=== PATIENT | male | born 1975 | race Hispanic/Latino ===

== ENCOUNTER 2016-11-14 10:24 | Emergency (ER) | payer OTHER ==
[~2016-11-14] VITALS: Ht 175.3 cm; Wt 95.3 kg
--- NOTE | 2016-11-14 11:50 | ED MVC/FALL/TRAUMA COMPLAINT ---
History of Present Illness General Chief Complaint: Low Back Pain/Injury Stated Complaint: LOW BACK PAIN, LT LEG PAIN/SWELLING Source: patient, old records Exam Limitations: no limitations Vital Signs & Intake/Output Vital Signs & Intake/Output Vital Signs Date Time Temp Pulse Resp B/P Pulse O2 O2 Flow FiO2 Ox Delivery Rate 11/14 1256 96.8 76 18 116/65 97 Room Air 11/14 1042 98.1 94 16 143/76 97 Room Air Allergies Uncoded Allergies: PEARS (HIVES 11/14/16) Reconcile Medications Cyclobenzaprine HCl 5 MG TABLET 1 TAB PO TIDPRN pain Methylprednisolone. (Medrol) 4 MG TAB.DS.PK 1 DP PO AD radiculopathy 6 on day 1 then reduce by one tablet daily until gone Oxycodone HCl/Acetaminophen (Percocet 5-325 MG Tablet) 5 MG-325 MG TABLET 1 TAB PO BID pain Triage Note: PT STATES HIS LEFT LEG AND BACK HURT. PT REPORTS SWELLING TO HIS LLE Triage Nurses Notes Reviewed? yes Onset: Abrupt Duration: day(s): (4), constant, waxing and waning Timing: recent history Severity: mild, moderate Severity Numbers: 5 Injuries/Fall Location: back Method of Injury: fall Loss of Consciousness: no loss of consciousness Modifying Factors: Improves With: rest. Worsens With: movement, palpation. Associated Symptoms: denies HPI: 40-year-old male with no medical history presents to emergency room complaining of left lower back pain that is radiating down the posterior aspect of his left leg for the past 4 days after he states he slipped and fell in the rain.. There is no head strike he denies any neck or upper back pain there is no loss of consciousness. States since then he's been having aching pain to the left lower back that is radiating down his buttocks and down his left leg associated with tingling and what he states is swelling to his leg. He is been taking anti- inflammatories without improvement. Pain is worse with change in position better at rest. He denies any urinary bowel incontinence no cell anesthesia no abdominal pain nausea vomiting diarrhea. No history of back problems in the past. (GAGAN AMAYA,MARIALUISA) Past History Travel History Traveled to [place] past 21 day No Medical History Any Pertinent Medical History? none Surgical History Surgical History: none Psychosocial History What is your primary language German Tobacco Use: Current Daily Use Daily Tobacco Use Amount/Type: => 5 Cigarettes daily ETOH Use: occasional use Illicit Drug Use: marijuana Family History Hx Contributory? No (MARIALUISA BECKER) Review of Systems Review of Systems Constitutional: Reports: see HPI. All Other Systems: Reviewed and Negative Comments Review of systems: See HPI, All other systems negative. Constitutional, no chills no fever, no malaise HEENT: No visual changes no sore throat no congestion Cardiovascular: No chest pain , no palpitation Skin, no rashes, no change in skin Respiratory: No dyspnea no cough no sputum GI: No nausea no vomiting, no diarrhea : No dysuria Muscle skeletal: No joint pain, back pain, no neck pain, Neurologic: No numbness no headache Psych: No stress Heme/endocrine: No bruising no bleeding Immunology: No lymphadenopathy (MARIALUISA BECKER) Physical Exam Physical Exam General Appearance: well developed/nourished, no apparent distress, alert, awake Comments: Well-developed well-nourished person in no acute distress HEENT: Normal EENT exam; PERRL, EOMI, HEAD is atraumatic. moist mucous membranes. Neck: Supple, normal range of motion Back: Tender to palpation over the left paralumbar muscles there is no ecchymosis or signs of trauma no midline tenderness, no CVA tenderness. Full range of motion Cardiovascular: Regular rate and rhythms no murmurs rubs Respiratory: No respiratory distress. Patient speaking in full complete sentences. Breath sounds clear to auscultation bilaterally: NO W/R/R Abdomen: Soft, nontender nondistended, no appreciable organomegaly. Normal bowel sounds. No rebound/guarding,. Extremity: No edema, positive straight leg raise a left lower extremity full range of motion of extremities, normal and equal pulses bilaterally, 5 out of 5 strength noted to bilateral upper and lower extremities Neuro: Alert oriented x3, motor sensory normal, There were no obvious focal neurologic abnormalities. Skin: No appreciable rash on exposed skin, skin is warm and dry. Psych: Mood and affect is normal, memory and judgment is normal. Core Measures ACS in differential dx? No Severe Sepsis Present: No Septic Shock Present: No (MARIALUISA BECKER) Progress Differential Diagnosis: abd injury, C/T/L spine injury, ext injury, spinal cord injury Plan of Care: Orders Procedure Date/time Status XRY-LUMBOSACRAL SPINE AP & LAT 11/14 1158 Active Current Medications Sig/Alex Start time Last Medication Dose Stop Time Status Admin Cyclobenzaprine HCl 5 MG ONCE ONE 11/14 1200 UNVr (Flexeril 5MG Tab) 11/14 1201 Patient medicated with prednisone 60 Percocet and partial 1 I discussed with the patient his x-ray results E for supportive care prescription is for the above provided, advised follow-up with his primary care physician, patient is ambulatory with steady gait. Patient clinically looks well. Patient has no evidence of radiculopathy. No urinary bowel dysfunction. No numbness in the genital area. Strength intact. Gross sensation intact. Patient resting comfortably and in no apparent distress. Pain is worse with range of motion. Pain is reproducible IN back with no bruising or ecchymosis noted. . Patient is to follow-up with primary care doctor. May need MRI of the lower back at some point time. No concerns for cauda equina at this point time. I considered this diagnosis but patient does not have any symptoms consistent with cauda equina. Patient has no secondary causes of back pain. No cardiac, pulmonary, or abdominal complaints. No abdominal pain on exam. Cardiac pulmonary exam within normal limits. No rashes, afebrile, denies recent weight loss, dizziness, lightheadedness (GAGAN AMAYA,MARIALUISA) Diagnostic Imaging: Viewed by Me: Radiology Read. Discussed w/RAD: Radiology Read. Radiology Impression: PATIENT: KATLIN BIRD PRESENT AGE: 40 PATIENT ACCOUNT NO: [id number] : 75 LOCATION: [facility] ORDERING PHYSICIAN: MARIALUISA AMAYA SERVICE DATE: 11/14/16 EXAM TYPE: RAD - XRY- LUMBOSACRAL SPINE AP & LAT EXAMINATION: XR LUMBOSACRAL SPINE CLINICAL INFORMATION: Left-sided back pain after fall. COMPARISON: None. TECHNIQUE: Lumbar spine, AP and lateral views FINDINGS: There is normal segmentation of the lumbar spine. No evidence of spondylolysis or vertebral compression fracture. There is traction osteophyte formation at L3-L4 and L4-L5. At L5-S1, there is mild degenerative disc space narrowing, traction osteophyte formation, and approximately 0.2 cm retrolisthesis of L5 on S1. Otherwise, lumbar vertebral alignment is maintained. Sacrum and sacroiliac joints are unremarkable. IMPRESSION: 1. No acute findings within the lumbosacral spine. 2. Mild disc degenerative change of L5-S1 with minimal retrolisthesis of L5 on S1. 3. No evidence of sacral fracture. DICTATED BY: ALLYN MCPHERSON MD DATE/TIME DICTATED: 11/14/161234 COMPUTER SYSTEMS SUPPORT SPECIALIST:HANK DATE/TIME TRANSCRIBED:11/14/161234 CONFIDENTIAL, DO NOT COPY WITHOUT APPROPRIATE AUTHORIZATION. <Electronically signed in Other Vendor System> SIGNED BY: ALLYN MCPHERSON MD 11/14/16 1241 (MARIALUISA BECKER) Departure Departure Time of Disposition: 1222 Disposition: HOME OR SELF CARE Condition: Stable Clinical Impression Primary Impression: Low back strain Referrals: PATIENT HAS NO PRIMARY CARE DR (PCP/Family) Referred to [facility] as new patient No Additional Instructions: Rest, interchange ice and heat. Percocet for breakthrough pain, Flexeril as directed use caution as these medications may make you drowsy. No driving or drinking alcohol while taking. Medrol Dosepak as discussed, return with any concerns Departure Forms: Customer Survey General Discharge Information Prescriptions: Current Visit Scripts Methylprednisolone. (Medrol) 1 DP PO AD #1 DP 6 on day 1 then reduce by one tablet daily until gone Oxycodone HCl/Acetaminophen (Percocet 5-325 MG Tablet) 1 TAB PO BID #10 TAB Cyclobenzaprine HCl 1 TAB PO TIDPRN #10 TAB (MARIALUISA BECKER) PA/SILK WEAVER Co-Sign Statement Statement: ED Attending supervision documentation- [] I saw and evaluated the patient. I have also reviewed all the pertinent lab results and diagnostic results. I agree with the findings and the plan of care as documented in the PA's/SILK WEAVER's documentation. [X] I have reviewed the ED Record and agree with the PA's/SILK WEAVER's documentation. [] Additions or exceptions (if any) to the PAs/SILK WEAVER's note and plan are summarized below: [] (JASON QUAN,ZAHRA)
[2016-11-14] MEDS ORDERED: CYCLOBENZAPRINE5 M2 PO (12:23)
[2016-11-14] MEDS ORDERED: MEDROL4 M2 PO (12:23)
[2016-11-14] MEDS ORDERED: PERCOCET 5-3251 EACH PO (12:23)
--- NOTE | 2016-11-14 12:41 | RADIOLOGY REPORT ---
EXAMINATION: XR LUMBOSACRAL SPINE CLINICAL INFORMATION: Left-sided back pain after fall. COMPARISON: None. TECHNIQUE: Lumbar spine, AP and lateral views FINDINGS: There is normal segmentation of the lumbar spine. No evidence of spondylolysis or vertebral compression fracture. There is traction osteophyte formation at L3-L4 and L4-L5. At L5-S1, there is mild degenerative disc space narrowing, traction osteophyte formation, and approximately 0.2 cm retrolisthesis of L5 on S1. Otherwise, lumbar vertebral alignment is maintained. Sacrum and sacroiliac joints are unremarkable. IMPRESSION: 1. No acute findings within the lumbosacral spine. 2. Mild disc degenerative change of L5-S1 with minimal retrolisthesis of L5 on S1. 3. No evidence of sacral fracture.
[2016-11-14 12:56] VITALS: BP 116/65
== END 2016-11-14 13:27 ==
LOC: ERH 10:24
DX: S39.012A Strain of muscle, fascia and tendon of lower back, initial encounter (principal); W01.0XXA Fall on same level from slipping, tripping and stumbling without subsequent striking against object, initial encounter
CPT/HCPCS: 72100